=== PATIENT | female | born 1985 | race Caucasian/White ===

== ENCOUNTER 2021-08-08 19:38 | Emergency (ER) | payer BC, SELFPAY ==
[2021-08-08 19:39] VITALS: BP 127/69; PULSE 105; RESP 18; TEMP 36.7; O2SAT 97; BMI 22.3
--- NOTE | 2021-08-08 20:07 | EDS_ITS ---
HPI HPI - GI History of Present Illness Chief Complaint: Abd Pain Narrative Narrative: 36-year-old female presenting with epigastric pain. She states it started on Friday. Is been fairly persistent. She states that it radiates from the center of her abdomen around under her ribs. She denies chest pain or shortness of breath. Patient denies any trauma. She admits to mild nausea but has no vomiting or diarrhea. She has been able to eat without any problem. She denies any urinary complaints. She has no concern for . Her only abdominal surgery is a . She denies other medical problems except for hypothyroidism. Patient has not had a fever. Patient does not drink excessive alcohol. No history of pancreatitis. [facility] Medical History delivery delivered Kaylen's thyroiditis Hypothyroid Home Medications [place] Thyroid 180 mg PO/SL DAILY 08/08/21 [History Last Taken Unknown] famotidine 20 mg PO BID PRN #20 tab 08/08/21 [Rx Last Taken Unknown] omeprazole 20 mg PO DAILY #30 capsule 08/08/21 [Rx Last Taken Unknown] Allergy/AdvReac Type Severity Reaction Status Date / Time No Known Allergies Allergy Verified 08/08/21 20:05 Social History Smoking Status: Never smoker ROS ROS ED Constitutional Constitutional ED: Denies chills or fever(s) ENT ENT ED: Denies rhinorrhea or sore throat Cardiovascular Cardiovascular: Denies chest pain or palpitations Respiratory/Chest Respiratory/Chest: Denies cough, dyspnea or sputum Gastrointestinal Gastrointestinal: Reports abdominal pain and nausea; Denies constipation, diarrhea or vomiting Genitourinary Genitourinary ED: Denies dysuria or hematuria Musculoskeletal Musculoskeletal: Denies arthralgias, back pain, myalgias or neck pain Integumentary Denies abscess or rash Neurologic Neurologic: Denies headache(s), paresthesias or weakness EXAM Physical Exam Const Vital Signs: 08/08/21 19:39 08/08/21 20:33 Temperature 98.0 F Temperature Source Temporal Pulse Rate 105 H 82 Respiratory Rate 18 18 Blood Pressure 127/69 H 124/73 H Blood Pressure Mean 88 90 Pulse Ox 97 100 Oxygen Delivery Method Room Air Room Air Positive well nourished General Appearance ED: NAD; Negative for pallor HEENT Reports moist mucous membranes normocephalic and atraumatic Eyes PERRL and EOMs intact bilaterally General Eye ED: Negative for scleral icterus Resp normal respiratory effort and clear to auscultation bilaterally Cardio regular rate and regular rhythm GI non-distended GI Narrative: No reproducible abdominal pain. Palpation: soft Back/Spine no CVA tenderness Neuro Sensorium / Orientation: alert, oriented to person, oriented to place and francis ented to time Psych mental status grossly normal and thought process normal Skin General Skin Exam: Negative for jaundice or pallor Lesions: no lesions Rashes: no rashes MDM MDM MDM Narrative Medical decision making narrative: Patient given morphine and Zofran. Blood work was obtained and her CBC, CMP, lipase are all within normal limits. BUN/creatinine ratio is slightly elevated 23.1 however she does not have an elevation in her creatinine or low GFR. I believe she can hydrate at home without IV fluids. I do not believe the patient needs a CT of the abdomen pelvis based on her pain. Is likely coming from her stomach. I will start her on a PPI and give her Pepcid for breakthrough irritation. She will follow-up with her PCP to get referred to a [facility] GI doctor as needed. Impression: 1. Epigastric pain Lab Data Labs: Laboratory Results - last 24 hr 08/08/21 08/08/21 20:20 20:20 WBC 8.2 RBC 4.12 L Hgb 12.5 Hct 36.4 L MCV 88.3 MCH 30.3 MCHC 34.3 RDW Std Deviation 37.6 RDW Coeff of Roland 11.7 Plt Count 275 MPV 9.9 Immature Gran % (Auto) 0.200 Neut % (Auto) 60.5 Lymph % (Auto) 27.2 C[place]ay % (Auto) 10.6 H Eos % (Auto) 1.3 Baso % (Auto) 0.2 Absolute Neuts (auto) 5.0 Absolute Lymphs (auto) 2.23 Nucleated RBC % 0 Sodium 138 Potassium 3.9 Chloride 103 Carbon Dioxide 30.0 Anion Gap 5 BUN 15 Creatinine 0.65 Estim Creat Clear Calc 104.32 Est GFR (MDRD) Af Amer 133 Est GFR (MDRD) Non-Af 110 BUN/Creatinine Ratio 23.1 H Glucose 110 H Calcium 8.6 Total Bilirubin 0.50 AST 13 L ALT 18 Alkaline Phosphatase 64 Total Protein 7.4 Albumin 3.3 Globulin 4.1 Albumin/Globulin Ratio 0.8 L Lipase 133 Discharge Plan Triage Chief Complaint: Abd Pain ED Provider: Jamil Beckham Dx/Rx/DC Orders Instructions: ED PEPTIC ULCER vs GASTRITIS Prescriptions: New omeprazole 20 mg capsule,delayed release(DR/EC) 20 mg PO DAILY Qty: 30 RF: 0 famotidine 20 mg tablet 20 mg PO BID PRN (Reason: acid reflux) Qty: 20 RF: 0 No Action [place] Thyroid 180 mg PO/SL DAILY RF: 0 Primary Care Provider: Edmund Will NP Referrals: Edmund Will NP, HOSPITAL COORDINATOR-C [Primary Care Provider] - Disposition Disposition: Home, Self Care
[2021-08-08] MEDS: Ondansetron 4 MG/2 ML Vial IV (20:30)
[2021-08-08] MEDS: Morphine 4 MG/ML Syringe IV (20:30)
[2021-08-08 20:33] VITALS: BP 124/73; PULSE 82; RESP 18; O2SAT 100
[2021-08-08 21:03] LABS: ALB/GLOB Ratio 0.8 RATIO (0.9-2.4); AST(SGOT) 13 U/L (15-37); Alanine Aminotransfer ALT/SGPT 18 U/L (13-56); Albumin, Serum 3.3 g/dL (3.2-5.0); Alkaline Phosphatase 64 U/L (45-117); Anion Gap 5 (5-15); BUN 15 mg/dL (7-18); BUN/Creat Ratio 23.1 RATIO (10-20); Calcium,Total 8.6 mg/dL (8.5-10.1); Chloride 103 mmol/L (98-107); Creatinine, Serum 0.65 mg/dL (0.55-1.02); EST Glomerular Filtration Rate 110 mL/min (>60); Est Glom Filt Rate - Afr Amer 133 mL/min (>60); Estimated Creatinine Clearance 104.32 ml/min; Globulin 4.1 g/dL (2.2-4.2); Glucose 110 mg/dL (74-106); Lipase 133 U/L (73-393); Potassium 3.9 mmol/L (3.5-5.1); Protein, Total 7.4 g/dL (6.4-8.2); Sodium Level 138 mmol/L (136-145)
[2021-08-08 21:10] LABS: Absolute Lymphocyte Count 2.23 X10^3/uL (0.83-4.51); Basophil# 0.02 X10^3/uL; Basophil% 0.2 % (0-1); Eosinophil# 0.11 X10^3/uL; Eosinophils% 1.3 % (0-5); Hematocrit 36.4 % (37-47); Hemoglobin 12.5 g/dL (12.0-15.0); Lymphocyte # 2.23 X10^3/ul (0.83-4.51); Lymphocyte % 27.2 % (19-41); Mean Corp Hgb Conc 34.3 g/dL (32-36); Mean Corpuscular Hgb 30.3 pg (27.0-32.0); Mean Corpuscular Volume 88.3 fL (81-99); Mean Platelet Vol. 9.9 fl (6.2-12.0); Monocyte# 0.87 X10^3/uL; Monocyte% 10.6 % (0-10); NRBC Flagged by Analyzer 0 % (0-5); Neutrophil # 4.95 X10^3/uL (2.7-7.7); Neutrophil % 60.5 % (47-70); Platelet Count 275 K/mm3 (150-450); RBC Distribution Width CV 11.7 % (11.6-14.6); RBC Distribution Width SD 37.6 fl (35.1-43.9); Red Blood Count 4.12 M/mm3 (4.2-5.4); White Blood Count 8.2 K/mm3 (4.4-11.0)
[2021-08-08 22:02] VITALS: BP 124/69; PULSE 81; RESP 17; O2SAT 100
== END 2021-08-08 22:06 | disposition home or self-care (01) ==
PROVIDERS: Emergency Provider Student in an Organized Health Care Education/Training Program; PCP Nurse Practitioner Family
DX: R10.13 Epigastric pain (principal); E06.3 Autoimmune thyroiditis; Z79.899 Other long term (current) drug therapy
CPT/HCPCS: 80053; 83690; 85025; 96372; 96374; 96375; 99284; A4216; J2405